=== PATIENT | female | born 1970 | race Caucasian/White ===

== ENCOUNTER 2024-11-29 15:25 | Emergency (ER) | payer OTHER, SELFPAY ==
[2024-11-29] VITALS (9 sets, daily range): BP systolic 118–152; BP diastolic 61–95; PULSE 65–90; RESP 13–26; TEMP 36.6; O2SAT 91–99; BMI 27.4
--- NOTE | 2024-11-29 16:04 | EKG_ITS ---
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
[2024-11-29 16:24] LABS: Add Manual Diff / Slide Review NO; Basophils Absolute Auto 0 /uL (0-100); Basophils Percent Auto 0.8 % (0-2); Eosinophils Absolute Auto 100 /uL (0-450); Eosinophils Percent Auto 1.9 % (2-4); Hematocrit 42.3 % (36-46); Hemoglobin 14.2 g/dL (12.0-16.0); Lymphocytes Absolute Auto 1400 /uL (1100-4500); Lymphocytes Percent Auto 24.6 % (25-40); Mean Corpuscular HGB Conc 33.6 % (30-36); Mean Corpuscular Hemoglobin 29.4 PG (26-34); Mean Corpuscular Volume 87.4 fL (80-100); Monocytes Absolute Auto 400 /uL (0-900); Monocytes Percent Auto 6.5 % (3-14); Neutrophils Absolute Auto 3900 /uL (1500-7000); Neutrophils Percent Auto 66.2 % (50-75); Platelet Count 208 X10^3/uL (150-400); Red Blood Cell Count 4.84 X10^6/uL (4.0-5.2); Red Cell Distribution Width 13.5 % (11.6-14.8); White Blood Cell Count 5.8 X10^3/uL (4.5-11.0)
[2024-11-29 16:29] LABS: Alanine Aminotransferase 36 IU/L (<35); Albumin 4.5 g/dL (3.5-5.0); Albumin Globulin Ratio 1.6 (1.0-2.8); Alkaline Phosphatase 108 U/L (38-126); Aspartate Aminotransferase 31 IU/L (14-36); BUN Creatinine Ratio 32.2 (6-22); Bilirubin Total 0.9 mg/dL (0.2-1.3); Blood Urea Nitrogen 19 mg/dL (7-17); Calcium 9.2 mg/dL (8.4-10.2); Carbon Dioxide 23 mmol/L (22-32); Chloride 99 mmol/L (98-107); Estimated Glomerular Filt Rate > 60 mL/min (>60); Globulin 2.8 g/dL (1.7-4.1); Glucose 386 mg/dL (70-100); HEMOLYSIS 23 (0-50); Lipase 87 U/L (23-300); Sodium 133 mmol/L (137-145); Total Protein 7.3 g/dL (6.3-8.2)
--- NOTE | 2024-11-29 16:29 | ED.RECABL ---
HPI - Recheck/Abnormal Lab/Rx General Chief Complaint: Recheck/Abnormal Lab/Rx Stated Complaint: high blood sugar- abnormal labs Time Seen by Provider: 11/29/24 16:11 History of Present Illness HPI narrative: Patient here for multiple complaints. One month ago was seen at [facility] for dysfunctional uterine bleeding. She has not had a period for over 1 year. No ultrasound was done. Since then she has seen her family doctor and had blood work done last Friday and showed high glucose levels. Patient denies any medical problems or diabetes. Headache started today. He has had off and on dizziness. No chest pain or shortness of breath. Patient denies heavy alcohol abuse. Patient in no distress at this time. Her main complaint today is headache, frontal headache. No vision changes. No nausea or vomiting. No polyuria polydipsia. Related Data Previous Rx's Medication Instructions Recorded metformin 500 mg tablet 500 mg PO BID #60 tabs 11/29/24 Allergies Allergy/AdvReac Type Severity Reaction Status Date / Time No Known Drug Allergies Allergy Verified 11/29/24 15:33 Review of Systems Review of Systems Narrative: GENERAL: Negative chills, fatigue, malaise, fever, sweats. HEENT: Negative sinus pain, ear pain, sore throat RESPIRATORY: Negative dyspnea, cough CARDIOVASCULAR: Negative chest pain, palpitations GASTROINTESTINAL: Negative vomiting, nausea, abdominal pain : Negative dysuria, frequency, hematuria, positive vaginal bleeding MUSCULOSKELETAL: Negative muscle or bony pain SKIN: Negative rash, skin lesions NEUROLOGIC: Negative weakness, numbness positive headache positive dizziness ROS Unobtainable: All systems reviewed & are unremarkable except as noted in HPI and below Patient History Social History Smoking Status: Never smoker Smoking Status: Never smoker Exam Narrative Exam Narrative: GENERAL: in no distress, not toxic not dyspneic HEAD: Normocephalic. EYES: Pupils equal round ENT: Mucous membranes moist. NECK: Trachea midline. No carotid bruit CARDIOVASCULAR: Regular rate and rhythm RESPIRATORY: Clear to auscultation. Breath sounds equal bilaterally. No wheezes, rales, or rhonchi. GASTROINTESTINAL: Abdomen soft, non-tender, no peritoneal signs no guarding or rebound. Bowel sounds are present. No CVA tenderness. EXTREMITIES: No gross deformities. BACK: No flank tenderness. NEURO: AOx4. Clear speech, no facial droop light touch intact bilateral face hands, legs. 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 No nystagmus. SKIN: Warm and dry PSYCH: Not anxious, is cooperative Initial Vital Signs Initial Vital Signs: Vital Signs Temperature 97.9 F 11/29/24 15:33 Pulse Rate 90 11/29/24 15:33 Respiratory Rate 18 11/29/24 15:33 Blood Pressure 152/78 H 11/29/24 15:33 Pulse Oximetry 99 11/29/24 15:33 Oxygen Delivery Method Room Air 11/29/24 15:33 Course Orders Ordered: Discontinued Medications Sodium Chloride (Normal Saline 0.9%) 1,000 mls @ 1,000 mls/hr IV BOLUS ONE Stop: 11/29/24 17:27 Last Infusion: 11/29/24 17:31 Dose: Infused Documented By: Admin: 11/29/24 16:45 Dose: 1,000 mls/hr Documented By: SB Ketorolac Tromethamine (Ketorolac 30 Mg/Ml Vial) 15 mg IV NOW ONE Stop: 11/29/24 16:29 Last Admin: 11/29/24 16:44 Dose: 15 mg Documented By: HILARIO Metformin HCl (Metformin Hcl 500 Mg Tablet) 500 mg PO NOW ONE Stop: 11/29/24 18:14 Last Admin: 11/29/24 18:24 Dose: 500 mg Documented By: MINDA Metoclopramide HCl (Metoclopramide 10 Mg/2 Ml Inj) 10 mg IV NOW ONE Stop: 11/29/24 16:29 Last Admin: 11/29/24 16:44 Dose: 10 mg Documented By: SB Ondansetron HCl (Ondansetron 4 Mg/2 Ml Inj) 4 mg IV NOW PRN PRN Reason: Nausea And Vomiting Ondansetron HCl (Ondansetron 4 Mg Odt) 4 mg PO NOW PRN PRN Reason: Nausea And Vomiting Vital Signs Vital signs: Vital Signs - 8 hr 11/29/24 15:33 11/29/24 16:15 11/29/24 16:18 Temperature 97.9 F Pulse Rate 90 83 Respiratory Rate 18 Blood Pressure 152/78 H 119/61 Pulse Oximetry 99 94 Oxygen Delivery Method Room Air 11/29/24 16:18 11/29/24 16:30 11/29/24 16:30 Temperature Pulse Rate 80 76 Respiratory Rate 14 13 Blood Pressure 118/64 Pulse Oximetry 94 94 Oxygen Delivery Method 11/29/24 17:00 11/29/24 17:00 11/29/24 17:32 Temperature Pulse Rate 77 80 Respiratory Rate 26 H 21 Blood Pressure 129/95 H Pulse Oximetry 95 91 Oxygen Delivery Method 11/29/24 18:00 Temperature Pulse Rate 65 Respiratory Rate 13 Blood Pressure Pulse Oximetry 94 Oxygen Delivery Method MDM - Recheck/Abnormal Lab/Rx Lab Data 11/29/24 16:00 11/29/24 16:00 Labs: Lab Results 11/29/24 Range/Units 16:00 WBC 5.8 (4.5-11.0) X10^3/uL RBC 4.84 (4.0-5.2) X10^6/uL Hgb 14.2 (12.0-16.0) g/dL Hct 42.3 (36-46) % MCV 87.4 (80-100) fL MCH 29.4 (26-34) PG MCHC 33.6 (30-36) % RDW 13.5 (11.6-14.8) % Plt Count 208 (150-400) X10^3/uL Neut % (Auto) 66.2 (50-75) % Lymph % (Auto) 24.6 L (25-40) % Swisher % (Auto) 6.5 (3-14) % Eos % (Auto) 1.9 L (2-4) % Baso % (Auto) 0.8 (0-2) % Neut # (Auto) 3900 (3682-2690) /uL Lymph # (Auto) 1400 (5166-4930) /uL Swisher # (Auto) 400 (0-900) /uL Eos # (Auto) 100 (0-450) /uL Baso # (Auto) 0 (0-100) /uL Sodium 133 L (137-145) mmol/L Potassium 4.0 (3.4-5.1) mmol/L Chloride 99 (98-107) mmol/L Carbon Dioxide 23 (22-32) mmol/L BUN 19 H (7-17) mg/dL Creatinine 0.59 (0.52-1.04) mg/dL Estimated GFR > 60 (>60) mL/min BUN/Creatinine Ratio 32.2 H (6-22) Glucose 386 H (70-100) mg/dL Hemoglobin A1c 11.4 H (4.0-6.0) % Calcium 9.2 (8.4-10.2) mg/dL Total Bilirubin 0.9 (0.2-1.3) mg/dL AST 31 (14-36) IU/L ALT 36 H (<35) IU/L Alkaline Phosphatase 108 (38-126) U/L Total Protein 7.3 (6.3-8.2) g/dL Albumin 4.5 (3.5-5.0) g/dL Globulin 2.8 (1.7-4.1) g/dL Albumin/Globulin Ratio 1.6 (1.0-2.8) Lipase 87 (23-300) U/L Ketones 0.17 (<0.27) mmol/L Point of Care Testing Test Results Negative Urine Dip Bedside Urine Glucose 1000 mg/dl Bedside Urine Bilirubin - Negative Bedside Urine Ketone - Negative Urine Specific [place] 1.010 Bedside Urine Occult Blood - Negative Bedside Urine pH 6.0 Bedside Urine Protein +/- 15 Bedside Urine Urobilinogen - Negative Bedside Urine Nitrite - Negative Bedside Urine Leukocytes - Negative Esterase Imaging Data CT scan - head: Radiologist's Impression: [place] [address] CT Scan Report Signed Patient: Roselia Vogt MR#: [id number] : 1970 Acct:[id number] Age/Sex: 54 / F Date of Service: 11/29/24 Loc: ED Accession Number: [id number] Procedure: CT head/brain wo con Ordering Provider: Giovanni Small MD PROCEDURE: CT HEAD/BRAIN WO CON INDICATIONS: Headache TECHNIQUE: Noncontrast 4.5 mm thick angled axial sections acquired from the foramen magnum to the vertex, with coronal and sagittal reformats. For radiation dose reduction, the following was used: automated exposure control, adjustment of mA and/or kV according to patient size. COMPARISON: None. FINDINGS: Image quality: Diagnostic. CSF spaces: Basal cisterns are patent. No extra-axial fluid collections. Ventricles are normal in size and shape. Brain: No midline shift. No intracranial masses or hemorrhage. Castro-white matter interface is normal. Skull and face: Calvarium and visualized facial bones are intact, without suspicious lesions. Sinuses: Visualized sinuses and mastoids are clear. IMPRESSION: No acute intracranial pathology. Dictated by: Meera Ward M.D. on 11/29/2024 at 17:56 Approved by: Meera Ward M.D. on 11/29/2024 at 17:56 US - PHYSICAL MEDICINE SPECIALIST: Radiologist's Impression: [address] [address] Ultrasound Report Signed Patient: Roselia Vogt MR#: [id number] : 1970 Acct:[id number] Age/Sex: 54 / F Date of Service: 11/29/24 Loc: ED Accession Number: [id number] Procedure: US pelvic complete Ordering Provider: Giovanni Small MD PROCEDURE: US PELVIC COMPLETE INDICATIONS: Pelvic pain/dysfunctional uterine bleeding TECHNIQUE: Real-time scanning was performed of the pelvic organs, with image documentation. Additional endovaginal scanning was necessary due to incomplete visualization of the adnexal and endometrial structures by transabdominal scanning. COMPARISON: None. FINDINGS: Uterus: Uterus is anteverted and normal in size at 8.3 x 6.9 x 5.4 cm. The myometrium is homogeneous. The endometrium measures 5 mm combined thickness. Focus of heterogeneous echogenicity measuring 3.5 cm in the midportion of the uterus. Ovaries: The right ovary measures 2.9 x 1.3 x 1.8 cm, with a calculated ovarian volume of 3.5 cc. The left ovary measures 2.6 x 1.6 x 1.7 cm, with a calculated ovarian volume of 3.7 cc. The ovaries have a normal sonographic appearance. Less than 12 follicles can be seen in each ovary. No adnexal masses are seen. Other: No pathologic free abdominal or pelvic fluid. IMPRESSION: Uterine fibroid. We strive to produce accurate, complete, and clear reports of imaging services. To assist us in improving patient care, this report was composed using standard report templates and voice recognition software. Therefore, it may contain abnormal punctuation, insertions and/or omissions. Occasional wrong-word or sound-alike substitutions may occur. Though we review the report and make efforts to correct it, we do recommend that the report be read carefully in proper context to recognize any text inaccuracies. Dictated by: Meera Ward M.D. on 11/29/2024 at 17:56 Approved by: Meera Ward M.D. on 11/29/2024 at 17:57 [facility] Narrative Medical decision making narrative: Patient here for multiple complaints. One month ago was seen at [facility] for dysfunctional uterine bleeding. She has not had a period for over 1 year. No ultrasound was done. Since then she has seen her family doctor and had blood work done last Friday and showed high glucose levels. Patient denies any medical problems or diabetes. Headache started today. He has had off and on dizziness. No chest pain or shortness of breath. Patient denies heavy alcohol abuse. Patient in no distress at this time. Her main complaint today is headache, frontal headache. No vision changes. No nausea or vomiting. No polyuria polydipsia. After history and exam, CBC CMP ketones hemoglobin A1c pelvic ultrasound CT head EKG [facility] Medical records reviewed: No recent visit for this complaint Differential considered: Includes but not limited to anemia arrhythmia migraine headaches tension headache dehydration Sodium 133 potassium 4.0 BUN 19 creatinine 0.59 GFR greater than 60 glucose 386 ketone 0.17 bicarb 23 hemoglobin A1c 11.4 Lab Test results independently reviewed as above. Pertinent findings: WBC 5.8 hemoglobin 14.2 Independently reviewed EKG normal sinus rhythm rate [address] elevation or depression Imaging studies independently reviewed: CT head no acute finding. Pelvic ultrasound uterine fibroid Consultations: 5:45 p.m.. Spoke with hospitalist, Dr. Baldwin, recommends metformin 500 mg twice a day for do onset diabetes. Treatments: Toradol Reglan normal saline Re-evaluations: 6:15 p.m.. Patient resting comfortably. Updated patient diagnosis of new onset diabetes metformin to be started. Fibroid finding referral for OBGYN. She has appointment tomorrow with her family doctor and will review these findings. Fibroid likely source of her vaginal bleeding a month ago. Discussion: Appropriate for discharge home exam is reassuring. Return precautions reviewed with patient. Laboratory studies imaging studies are otherwise reassuring. She has appointment with her primary care tomorrow for follow up for these findings. She desires discharge home. 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 Please see your family doctor as scheduled for review of today's results. Prescription medication metformin has been started for you. Referral for OBGYN has been provided for you to call tomorrow regarding your uterine fibroid. Your laboratory studies and imaging studies otherwise are reassuring. Return if worse if any questions or concerns Prescriptions: New metformin 500 mg tablet 500 mg PO BID Qty: 60 0RF Referrals: Cori Brenner MD [Physician] - Stand Alone Forms: Patient Portal/API/Survey
--- NOTE | 2024-11-29 16:32 | DI.CT.S_ITS ---
PROCEDURE: CT HEAD/BRAIN WO CON INDICATIONS: Headache TECHNIQUE: Noncontrast 4.5 mm thick angled axial sections acquired from the foramen magnum to the vertex, with coronal and sagittal reformats. For radiation dose reduction, the following was used: automated exposure control, adjustment of mA and/or kV according to patient size. COMPARISON: None. FINDINGS: Image quality: Diagnostic. CSF spaces: Basal cisterns are patent. No extra-axial fluid collections. Ventricles are normal in size and shape. Brain: No midline shift. No intracranial masses or hemorrhage. Castro-white matter interface is normal. Skull and face: Calvarium and visualized facial bones are intact, without suspicious lesions. Sinuses: Visualized sinuses and mastoids are clear. IMPRESSION: No acute intracranial pathology. Dictated by: Meera Ward M.D. on 11/29/2024 at 17:56 Approved by: Meera Ward M.D. on 11/29/2024 at 17:56
[2024-11-29] MEDS: KETOROLAC 30 MG/ML VIAL 15 MG IV (16:44)
[2024-11-29] MEDS: METOCLOPRAMIDE 10 MG/2 ML INJ IV (16:44)
[2024-11-29] MEDS: SODIUM CHLORIDE 0.9% 1,000 ML 1000 ML IV (16:45)
[2024-11-29 17:00] LABS: Ketones (Beta-Hydroxybutyrate) 0.17 mmol/L (<0.27)
[2024-11-29 17:03] LABS: Hemoglobin A1C% w Est Avg Glu 11.4 % (4.0-6.0)
[2024-11-29] MEDS: METFORMIN HCL 500 MG TABLET PO (18:24)
== END 2024-11-29 18:39 | disposition home or self-care (01) ==
PROVIDERS: Emergency Provider Emergency Medicine
DX: D25.9 Leiomyoma of uterus, unspecified (principal); R51.9 Headache, unspecified; E11.9 Type 2 diabetes mellitus without complications
CPT/HCPCS: 36415; 70450; 76830; 76856; 80053; 81003; 81025; 82009; 83036; 83690; 85025; 93005; 93975; 96361; 96374; 96375; 99284; J1885; J2765